=== PATIENT | male | born 1960 | race Caucasian/White ===

== ENCOUNTER → 2017-11-20 09:36 | Outpatient (CLI) | payer OTHER ==
[2014-07-21 14:20] VITALS: BMI 22.7
[~2017-11-20 09:36] MED LIST: CLARITIN-D1 TAB.SR . PO; CLARITIN-D1 TAB.SR1 PO
== END | disposition home or self-care (01) ==
LOC: D.RAD 09:36
DX: Z02.71 Encounter for disability determination (principal)